=== PATIENT | female | born 1960 | race Caucasian/White ===

== ENCOUNTER 2025-04-20 13:08 | Outpatient (AMB) | payer BC, SELFPAY ==
--- NOTE | 2025-04-20 13:07 | MHC.PC.OV ---
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: No Accompanied by: Self / Same As Patient Allergies codeine Adverse Reaction (Intermediate, Verified 04/20/25 13:08) nausea, vomiting sulfadiazine Adverse Reaction (Verified 04/20/25 13:08) Unknown Medication List - Last Reconciled 04/20/25 by America Gerber MD alprazolam 1 mg PO TID PRN jcbcnlcpiv-intjnfzpqvhha-xavr 50-300-40 mg 1 cap PO BID PRN carbidopa-levodopa 25-100 mg tabs PO fluoxetine 20 mg PO DAILY fluoxetine 10 mg PO DAILY gabapentin mg PO lisinopril 20 mg PO DAILY metaxalone 800 mg PO DAILY PRN multivitamin 1 tab PO DAILY rizatriptan mg PO rosuvastatin 20 mg PO DAILY topiramate mg PO zolpidem ER 12.5 mg PO BEDTIME Tobacco use date assessed: 04/20/25 Dental Screening Dental Screen Date: 04/20/25 Did you have a dental visit in the last 12 months?: Yes Did you have a dental problem in the last 6 months where you did not have access to dental care?: No Was dental information given to patient?: Patient has dentist HPI HPI Comments History of Present Illness Details The patient is a 65-year-old female presenting to [facility] and for management of chronic conditions. Parkinson's Disease: The patient was diagnosed with Parkinson's disease by a movement specialist, Dr. Vigil, on January 04. She estimates she may have been experiencing symptoms for about five years. Her symptoms have included changes in penmanship, shoulder rigidity, freezing of gait, tripping, and a quieter voice. She is currently treated with carbidopa-levodopa, which she tolerates well without nausea and which has significantly improved her mood and motivation. Recently adjusted her midday dose to manage wearing-off symptoms that occur around lunchtime. She recently completed an intensive 4x4x4 physical therapy regimen called the [facility] program, which she found very successful, and she continues daily maintenance exercises and walks. She has never had a fall. Chronic Migraine: The patient has a long-standing history of migraines, which she reports have worsened and now occur daily. Her current preventative regimen of topiramate 150 mg daily (taken as two pills in the morning and one at night) and riboflavin (B2) 400 mg is not providing relief. She reports that Fioricet is the only abortive medication that has ever worked for her, but she is currently out of it. Use of rizatriptan is limited by her insurance. Anxiety: The patient experiences anxiety that she reports is a trigger for her tremors. This occurs when discussing her condition and also in specific situations, such as being in line at the grocery store. She uses alprazolam as needed for these symptoms. Musculoskeletal Pain: The patient reports chronic pain and tightness in her neck for six years and back for three years, which extends across her shoulders and down her back. This is thought to be a secondary musculoskeletal issue related to the rigidity from Parkinson's disease. She has both gabapentin and metaxalone for pain and finds gabapentin to be more effective. [facility] Care Team Neurology- Dr. Vigil Dermatology- Dr. Ferris Medical History: - Parkinson's Disease, diagnosed December 2022 - Chronic Migraine - Anxiety - Rosacea Medications: - Carbidopa-levodopa: for Parkinson's disease, one tablet three times a day with an adjusted midday dose. - Topiramate 150 mg total daily: for migraine prevention. - Riboflavin (Vitamin B2) 400 mg: for migraine prevention. - Alprazolam (Xanax): as needed for anxiety. - Zolpidem (Ambien): for sleep. - Gabapentin: for musculoskeletal pain. - Metaxalone: as needed for musculoskeletal pain. - Fioricet: previously used as needed for migraines, - Rizatriptan: for migraines, use limited by insurance. 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 - Exercise: Walks 25 minutes daily, joined the [facility], and performs daily maintenance exercises from her physical therapy program. - Functional Status: Reports being independent and functionally normal. - Diet: Reports eating a lot of fruit and vegetables. Review of Systems - General: Reports fatigue. - Cardiovascular: Denies chest pain or significant leg swelling. - Neurological: Reports daily headaches, tremors exacerbated by anxiety, micrographia (small handwriting) - Denies shuffling gait or falls. - Speech: Reports her voice gets low. - Psychiatric: Reports anxiety, particularly when talking about her diagnosis and in specific social situations like grocery store lines. - Musculoskeletal: Reports chronic pain and stiffness in the neck, shoulders, and back. - Skin: Reports facial flushing, which has previously been diagnosed as rosacea. Physical Exam - General: Face is slightly flushed. - Lungs: Clear to auscultation bilaterally. - Cardiovascular: Auscultation reveals a soft, subtle murmur. Normal s1, s2 - Abdomen: Soft with good bowel sounds. - Extremities: - trace edema bilaterally Assessment and Plan 1. Parkinson's Disease (G20) - The patient's condition is being managed by a movement disorder specialist. - She is responding well to carbidopa-levodopa and has benefited from intensive physical therapy. - She will continue her current regimen and exercises. - She has a follow-up with her specialist's PA in two months. 2. Chronic Migraine (G43.709) - The patient's daily headaches are suboptimally controlled on her current preventative regimen of topiramate and riboflavin. - For acute treatment, a prescription for Fioricet will be sent to her pharmacy, as this has been effective for her in the past. - It is recommended she follow up with her neurologist to discuss optimizing her preventative therapy, which may involve increasing her Topamax dose. 3. Anxiety (F41.9) - The patient experiences situational anxiety that exacerbates her tremors. - She uses alprazolam as needed. - Will continue to monitor. 4. Musculoskeletal Pain (M79.1) - The pain is likely secondary to Parkinson's-related rigidity. - She will continue using gabapentin, which she finds effective. - A prescription for gabapentin will be provided. 5. Peripheral Edema (R60.0) - Minor, gravity-dependent edema noted on exam is likely due to prolonged sitting. - Advised the patient to elevate her legs when possible and to use compression stockings. 6. Heart Murmur (R01.1) - As the patient is asymptomatic, the plan is to monitor clinically. 7. HTN-continue current regimen Follow up in 3 months Discussion Notes I discussed with the patient her recent diagnosis of Parkinson's disease, reviewing her history, symptoms, and current management. We acknowledged her positive response to carbidopa-levodopa and the benefits she has gained from her intensive physical therapy program. We addressed her chronic daily headaches and the ineffectiveness of her current preventative regimen. I explained the plan to provide Fioricet as an abortive therapy with limited use and strongly recommended she follow up with her neurologist to discuss escalating her preventative treatment. Patient Instructions - Continue taking your Parkinson's medication (carbidopa-levodopa) as prescribed by your specialist. - Continue your daily exercises and walking routine as recommended by your physical therapist. - [facility] for your severe headaches. - Please use this medication only when you have a bad headache, not for daily use. - Please schedule an appointment with your headache specialist, Dr. Suarez, to talk about better ways to prevent your daily headaches. - For the swelling in your legs, try to put your feet up when you are sitting for a long time. - You should also wear compression socks during the daytime to help with this. [facility] Medical History (Updated 04/20/25 @ 17:27 by Aemrica Gerber MD) Anxiety Depression Migraines Obstructive sleep apnea Primary hypertension Parkinsons disease Surgical History (Updated 04/20/25 @ 09:39 by America Gerber MD) H/O cervical spine surgery H/O breast surgery History of colonoscopy (~02/01/21) Family History (Updated 04/20/25 @ 09:47 by America Gerber MD) Brother Liver disease Paternal Grandmother Breast cancer Father Prostate cancer Maternal Uncle No problems noted. 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 1. Little interest or pleasure in doing things: not at all 2. Feeling down, depressed, or hopeless: not at all 3. Trouble falling or staying asleep, or sleeping too much: not at all 4. Feeling tired or having little energy: not at all 5. Poor appetite or overeating: not at all 6. Feeling bad about yourself - or that you are a failure or have let yourself or your family down: not at all 7. Trouble concentrating on things, such as reading the newspaper or watching television: not at all 8. Moving or speaking so slowly that other people could have noticed. Or the opposite - being so fidgety or restless that you have been moving around a lot more than usual: not at all 9. Thoughts that you would be better off or of hurting yourself in some way: not at all Total score: 0 Depression Screening Interpretation: Negative Depression Screening Done: Yes [id number] - PHQ-9 Billing: Yes Source: Developed by Drs. Huang Aldridge, Dorina Mercado, Darrin Jenkins and colleagues, with an educational татьяна from [employer]. AUDIT C Alcohol Use Questionnaire (AUDIT-C) 1. How often do you have a drink containing alcohol?: Never 3. How often do you have six or more drinks on one occasion?: Never Total Score: 0 ROCKY-7 AMB Questionnaire ROCKY-7 Date ROCKY - 7 assessed: 04/20/25 Feeling nervous, anxious, or on edge: 0 = Not at all Not being able to stop or control worryin = Not at all Worrying too much about different things: 0 = Not at all Trouble relaxin = Not at all Being so restless that it is hard to sit still: 0 = Not at all Becoming easily annoyed or irritable: 0 = Not at all Feeling afraid as if something awful might happen: 0 = Not at all Total ROCKY-7 score (0-4 normal; 5-9 mild; 10-14 moderate; 15-21 severe): 0 Source: Developed by Drs. Huang Aldridge, Dorina Mercado, Darrin Jenkins and colleagues, with an educational татьяна from [employer]. Physical exam (Primary Care) Vital Signs: Last Vital Signs Temp 97.1 F 04/20/25 13:12 Pulse 71 04/20/25 13:12 Resp 16 04/20/25 13:12 BP 120/78 04/20/25 13:12 Pulse Ox 96 04/20/25 13:12 Oxygen Delivery Method Room Air 04/20/25 13:12 BMI result Body Mass Index 35.5 Tobacco/Smoking Status: Tobacco use Status Tobacco use date assessed 04/20/25 04/20/25 13:14 Patient Tobacco Use Status Never used Tobacco 04/20/25 13:21 e-Cigarette/Vaping Use Never Used 04/20/25 13:21 PHQ-9: PHQ-9 Score PHQ-9: Total score 0 04/20/25 16:17 Depression Screening Interpretation: Negative Coding Level of Care Code Est Pt Level 4 (07822) Complex EM visit Add On G2211 Diagnoses Parkinsons disease G20 Migraine without status migrainosus, not intractable, unspecified migraine type G43.909 Migraine type: unspecified Status migrainosus presence: without status migrainosus Intractability: not intractable Primary hypertension I10 Anxiety F41.9 Additional Codes PHQ-9 - 17708 - PHQ-9 Billing: Yes ([id number]) Assessment & Plan Assessment & Plan (1) Parkinsons disease: Code(s): G20 - Parkinson's disease Category: Medical (2) Migraines: Code(s): G43.909 - Migraine, unspecified, not intractable, without status migrainosus Category: Medical Qualifiers: Migraine type: unspecified Status migrainosus presence: without status migrainosus Intractability: not intractable Qualified Code(s): G43.909 - Migraine, unspecified, not intractable, without status migrainosus (3) Primary hypertension: Code(s): I10 - Essential (primary) hypertension Category: Medical (4) Anxiety: Code(s): F41.9 - Anxiety disorder, unspecified Category: Medical Plan Plan - Medications: Sent a prescription for Fioricet (28 tabs with refills) to [facility] for abortive migraine therapy. - Recommendations: Advised patient on lifestyle modifications for peripheral edema, including leg elevation and the use of compression stockings. - Referrals/Consults: Recommended the patient schedule a follow-up with her neurologist, Dr. Suarez, to optimize her migraine prevention strategy. movement disorder specialist. Medications: New topiramate 3 TABS BY MOUTH DAILY xhsigugthe-scjjezkvfrsiu-nnzv 50-300-40 mg 1 cap PO BID PRN 28 caps 5RF SEVERE HEADACHE 14 days gabapentin 100 mg PO DAILY 90 caps 2RF 90 days
[2025-04-20 13:12] VITALS: BP 120/78; PULSE 71; RESP 16; TEMP 36.2; O2SAT 96; BMI 35.5
== END 2025-04-20 14:14 | disposition home or self-care (01) ==
LOC: HO.HMCHD 13:09
PROVIDERS: PCP Internal Medicine; Visit Provider Internal Medicine
DX: G20.C Parkinsonism, unspecified (principal); G43.909 Migraine, unspecified, not intractable, without status migrainosus; I10 Essential (primary) hypertension; F41.9 Anxiety disorder, unspecified

== ENCOUNTER → 2025-04-20 13:08 | Outpatient (BNVA) | payer BC, SELFPAY | PROVIDERS: PCP Internal Medicine; Visit Provider Internal Medicine | DX: G20.C Parkinsonism, unspecified (principal); G43.909 Migraine, unspecified, not intractable, without status migrainosus; I10 Essential (primary) hypertension; F41.9 Anxiety disorder, unspecified; Z79.899 Other long term (current) drug therapy | CPT/HCPCS: 96127 ==